=== PATIENT | female | born 1935 | race Caucasian/White ===

== ENCOUNTER 2016-11-30 17:18 | Emergency (ER) | payer MEDICARE ==
[2016-11-30 17:52] VITALS: BP 209/103
--- NOTE | 2016-11-30 18:30 | EDM.PDOC ---
ED HPI GENERAL MEDICAL PROBLEM - General Chief Complaint: ENT Problem Stated Complaint: FLU SYMPTOMS Time Seen by Provider: 11/30/16 18:20 Source of Information: Reports: Patient History Limitations: Reports: No Limitations - History of Present Illness INITIAL COMMENTS - FREE TEXT/NARRATIVE: Bella is a 81 year old female who presents to the ED today with c/o sinus pain/ pressure and congestion as well as post nasal drip for the last 3 days. Patient reports she recently got over the stomach flu with diarrhea for 2 days. She never had any vomiting and was able to keep water down which she drinks a "ton of" daily. Patient denies any fever or cough. Patient reports she has been taking Claritin and using netti pot with minimal relief. 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 ED EXAM, ENT - Physical Exam Exam: See Below Exam Limited By: No Limitations General Appearance: Alert, WD/WN, No Apparent Distress Eye Exam: Left Eye: Abnormal Pupil (Not new per patient), Bilateral Eye: EOMI Ears: Normal External Exam, Normal Canal, Hearing Grossly Normal, Normal TMs Nose: Other (Maxillary and frontal sinus tenderness on exam bilaterally) Mouth/Throat: Normal Inspection, Normal Oropharynx Head: Atraumatic Neck: Normal Inspection Respiratory/Chest: No Respiratory Distress, Lungs Clear, Normal Breath Sounds Cardiovascular: Normal Peripheral Pulses, Regular Rate, Rhythm, No Edema, No Murmur GI/Abdominal: Normal Bowel Sounds, Soft, Non-Tender Neurological: Alert, Oriented, CN II-XII Intact, Normal Cognition Psychiatric: Normal Affect, Normal Mood Skin: Warm, Dry, Intact Lymphatic: No Adenopathy Course - Vital Signs Text/Narrative:: Bella is a delightful 81 year old female who presents to the ED today with c/o sinus pressure/congestion/post nasal drip for the last 3 days. Patient on exam has an acute sinusitis. She is otherwise well hydrated, non-toxic appearing. Remaining exam is unremarkable. I discussed with patient her symptoms and duration. I would like to avoid antibiotics at this time. Patient was encouraged to take Claritin daily, I will start her on Flonase for the next 7 days. I would like patient to see her PCP in one week, if her symptoms worsen or other complications arise, she can return here. Patient is agreeable to plan of care and questions were answered prior to discharge. Patient discharged with her son in stable condition. Last Recorded V/S: Last Vital Signs Temp 36.6 C 11/30/16 17:59 Pulse 93 11/30/16 17:59 Resp 18 11/30/16 17:59 BP 209/103 H 11/30/16 17:59 Pulse Ox 96 11/30/16 17:59 Departure - Departure Time of Disposition: 18:45 Disposition: Home, Self-Care 01 Condition: good Clinical Impression: Sinusitis, acute Qualifiers: Sinusitis location: frontal Recurrence: non-recurrent Qualified Code(s): J01.10 - Acute frontal sinusitis, unspecified - Discharge Information Instructions: Sinusitis, Adult, [id number] Referrals: Soni Robles PA [Primary Care Provider] - Forms: ED Department Discharge
== END 2016-11-30 18:37 | disposition home or self-care (01) ==
LOC: JP.ED 17:18
DX: J01.10 Acute frontal sinusitis, unspecified (principal); Z98.890 Other specified postprocedural states; Z87.891 Personal history of nicotine dependence; Z88.5 Allergy status to narcotic agent
CPT/HCPCS: 99283

== ENCOUNTER 2017-10-07 20:00 | Emergency (ER) | payer MEDICARE ==
[2017-10-07 20:51] VITALS: BP 194/66
--- NOTE | 2017-10-07 21:10 | EDM.PDOC ---
ED HPI GENERAL MEDICAL PROBLEM - General Chief Complaint: General Stated Complaint: BLOOD PRESSURE Time Seen by Provider: 10/07/17 20:50 Source of Information: Reports: Patient, Family History Limitations: Reports: No Limitations - History of Present Illness INITIAL COMMENTS - FREE TEXT/NARRATIVE: 82-year-old female concerned that her blood pressure was higher than usual today after stopping a new blood pressure medicine she started 3 days ago. She thought it was giving her leg cramps so she did not take any today, was checking her blood pressure frequently and was worried it was getting high, close to 200 systolic. She otherwise feels fine. She has an appointment tomorrow to talk with her physician about medication options. She has no chest pain or shortness of breath. denies pain Pain Score (Numeric/FACES): 0 - Related Data Allergies Allergy/AdvReac Type Severity Reaction Status Date / Time codeine Allergy Vomiting Verified 10/07/17 20:31 Home Meds: Home Meds Hydrocodone/Acetaminophen [Hydrocodon-Acetaminophen 5-325] 1 tab PO BID [History] tiZANidine [Zanaflex] 4 mg PO BEDTIME PRN 11/30/16 [History] Carvedilol 12.5 mg PO BID 10/07/17 [History] Chlorthalidone 12.5 mg PO BID 10/07/17 [History] Fluticasone Propionate [Flonase Allergy Relief] 9.9 ml NS DAILY 10/07/17 [ History] Lisinopril 40 mg PO DAILY 10/07/17 [History] Omeprazole 20 mg PO DAILY 10/07/17 [History] Ranitidine HCl [Ranitidine] 150 mg PO BEDTIME 10/07/17 [History] Past Medical History HEENT History: Reports: Impaired Vision Cardiovascular History: Reports: Heart Failure, Hypertension, [place] Gastrointestinal History: Reports: GERD Genitourinary History: Reports: Urinary Incontinence, UTI, Recurrent 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: Musculoskeletal History: Reports: Arthritis Neurological History: Reports: Headaches, Chronic, Migraines Dermatologic History: Reports: Eczema - Past Surgical History Cardiovascular Surgical History: Reports: Carotid Stents GI Surgical History: Reports: Hernia, Abdominal Female Surgical History: Reports: Section Neurological Surgical History: Reports: Spinal Fusion Social & Family History - Tobacco Use Smoking Status *Q: Never Smoker Used Tobacco, but Quit: No - Caffeine Use Caffeine Use: Reports: Coffee - Recreational Drug Use Recreational Drug Use: No ED ROS GENERAL - Review of Systems Review Of Systems: See Below Constitutional: Denies: Fever, Chills Respiratory: Denies: Shortness of Breath, Cough Cardiovascular: Denies: Chest Pain GI/Abdominal: Denies: Abdominal Pain, Nausea, Vomiting Neurological: Denies: Confusion, Headache ED EXAM, GENERAL - Physical Exam Exam: See Below Exam Limited By: No Limitations General Appearance: Alert, No Apparent Distress Eye Exam: Bilateral Eye: EOMI Respiratory/Chest: No Respiratory Distress, Lungs Clear Cardiovascular: Regular Rate, Rhythm Extremities: Normal Inspection. No: Pedal Edema Neurological: Alert, Oriented, No Motor/Sensory Deficits Psychiatric: Anxious Skin Exam: Warm, Dry Course - Vital Signs Last Recorded V/S: Last Vital Signs Temp 97.3 F 10/07/17 20:45 Pulse 71 10/07/17 20:50 Resp 14 10/07/17 20:50 BP 194/66 H 10/07/17 20:50 Pulse Ox 97 10/07/17 20:50 - Re-Assessments/Exams Free Text/Narrative Re-Assessment/Exam: 10/07/17 21:09 Initially the patient was somewhat anxious, after relaxing her blood pressure normalized to 167/55. No additional evaluation was necessary but it is important she keeps her appointment tomorrow with her physician to talk about the medications. Departure - Departure Time of Disposition: 21:33 Disposition: Home, Self-Care 01 Condition: Good Clinical Impression: Essential hypertension - Discharge Information Instructions: Hypertension, [id number] Referrals: Soni Robles PA [Primary Care Provider] - Forms: ED Department Discharge Care Plan Goals: Rest tonight, continue your regular medications and recheck tomorrow as planned. Return sooner if worsening or concerns.
== END 2017-10-07 21:33 | disposition home or self-care (01) ==
LOC: JP.ED 20:00
DX: I10 Essential (primary) hypertension (principal); I11.0 Hypertensive heart disease with heart failure; I50.9 Heart failure, unspecified; I25.2 Old myocardial infarction; K21.9 Gastro-esophageal reflux disease without esophagitis; Z79.899 Other long term (current) drug therapy; Z88.5 Allergy status to narcotic agent
CPT/HCPCS: 99283